=== PATIENT | male | born 1995 | race Caucasian/White ===

== ENCOUNTER 2017-08-18 14:59 | Emergency (ER) | payer SELFPAY ==
[2017-08-18 15:12] VITALS: RESP 16
[2017-08-18] MEDS ORDERED: LIDOCAINE 5% 1 EA PATCH TD ONE ×2 (17:42→17:55)
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
[2017-08-18 18:05] VITALS: BP 113/85; PULSE 68; TEMP 98.4; O2SAT 96
[2017-08-18] MEDS ORDERED: PATCH REMOVAL 1 EA PATCH TD SCH (21:00)
[2017-08-19] MEDS ORDERED: LIDOCAINE 5% 1 EA PATCH TD SCH (09:00)
== END 2017-08-18 18:05 | disposition home or self-care (01) ==
DX: M54.42 Lumbago with sciatica, left side (principal); F17.200 Nicotine dependence, unspecified, uncomplicated